=== PATIENT | male | born 2000 | race Caucasian/White ===

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

== ENCOUNTER 2022-03-05 19:23 | Observation (INO) | payer OTHER ==
[2022-03-05] MEDS ORDERED: Sodium Chloride 0.9% 10 ML Syringe FLUSH PRN (19:25)
[2022-03-05] MEDS ORDERED: Sodium Chloride 0.9% 1,000 ML IV ONE ×2 (19:26→20:49)
[2022-03-05 20:03] LABS: ANION GAP 11.1 mmol/L (5-15); CHLORIDE,CL 100 mmol/L (98-107); SODIUM,NA 135 mmol/L (136-145)
[2022-03-05 20:04] LABS: ESTIMATED GFR 117 mL/min (>=60)
[2022-03-05] MEDS ORDERED: cefTRIAXone 2 GM Vial IVPUSH ONE (20:17)
[2022-03-05] MEDS ORDERED: Azithromycin 500 MG in Sodium Chloride 0.9% 250 ML IV ONE (20:18)
[2022-03-05] MEDS ORDERED: Ketorolac 30 MG/ML SDV IVPUSH ONE (20:38)
[2022-03-05] MEDS ORDERED: Sodium Chloride 0.9% 1,000 ML ONE (20:47)
[2022-03-05 20:56] LABS: RESPIRATORY SYNCYTIAL VIR NAA NEGATIVE (NEGATIVE)
[2022-03-05 20:58] LABS: CORONAVIRUS COVID-19 NAA NEGATIVE (NEGATIVE)
[2022-03-05] MEDS ORDERED: Iopamidol 755 Mg/ML 75 ML Bottle IVPUSH ONE (21:32)
[2022-03-05] MEDS ORDERED: Sodium Chloride 0.9% 100 ML IV SCH (21:45)
[2022-03-05] MEDS ORDERED: Ondansetron 4 MG/2 ML SDV IVPUSH ONE (22:01)
[2022-03-05] MEDS ORDERED: Ibuprofen 400 MG Tab PO ONE (22:02)
[2022-03-05] MEDS ORDERED: Albuterol/Ipratropium 3.0-0.5 MG/3 ML Neb Soln NEB ONE (22:08)
[2022-03-05] MEDS ORDERED: Ondansetron 4 MG/2 ML SDV IVPUSH PRN (22:58)
[2022-03-05] MEDS: Sodium Chloride 0.9% 1,000 ML IV SCH (23:00)
[2022-03-05] MEDS ORDERED: Albuterol/Ipratropium 3.0-0.5 MG/3 ML Neb Soln NEB PRN (23:01)
[2022-03-05] MEDS ORDERED: Lidocaine 2% 100 MG/5 ML Syringe IVPUSH PRN (23:27)
[2022-03-05] MEDS ORDERED: Atropine 0.1 MG/ML 10 ML Syringe IVPUSH PRN (23:27)
[2022-03-05] MEDS ORDERED: EPINEPHrine 1:10,000 1 MG/10 ML Syringe IVPUSH PRN (23:27)
[2022-03-05] MEDS ORDERED: Nitroglycerin 0.4 MG Tab.SL SL PRN (23:27)
[2022-03-05] MEDS: Acetaminophen 325 MG Tab PO PRN (23:30)
[2022-03-06] MEDS ORDERED: Ibuprofen 600 MG Tab PO PRN (04:00)
[2022-03-06 07:40] LABS: ANION GAP 8.3 mmol/L (5-15)
[2022-03-06] MEDS: Acetaminophen 325 MG Tab PO PRN ×2 (08:18→15:54)
[2022-03-06] MEDS: Sodium Chloride 0.9% 1,000 ML IV SCH ×2 (09:41→20:16)
[2022-03-06] MEDS: guaiFENesin 600 MG Tab.ER PO SCH ×2 (10:19→20:15)
[2022-03-06] MEDS ORDERED: cefTRIAXone 1 GM Vial IVPUSH SCH (21:00)
[2022-03-06] MEDS ORDERED: Azithromycin 500 MG in Sodium Chloride 0.9% 250 ML IV SCH (21:00)
[2022-03-07 06:51] VITALS: BP 130/74; PULSE 86
[2022-03-07] MEDS: Sodium Chloride 0.9% 1,000 ML IV SCH (07:25)
[2022-03-07 07:51] LABS: ANION GAP 10.3 mmol/L (5-15)
[2022-03-07] MEDS: guaiFENesin 600 MG Tab.ER PO SCH (08:23)
[2022-03-07] MEDS ORDERED: Cefdinir 300 MG Cap PO SCH (21:00)
[2022-03-07] MEDS ORDERED: Azithromycin 250 MG Tab PO ONE (21:00)
== END 2022-03-07 10:30 | disposition home or self-care (01) ==
LOC: KA.ED 19:23 → KA.MS 22:25
PROVIDERS: ADMIT Physician Assistant Medical; ATTEND Physician Assistant Medical
DX: J18.1 Lobar pneumonia, unspecified organism (principal); D72.829 Elevated white blood cell count, unspecified; R00.0 Tachycardia, unspecified; Z79.899 Other long term (current) drug therapy; Z91.040 Latex allergy status; Z98.890 Other specified postprocedural states; Z87.891 Personal history of nicotine dependence; Z20.822 Contact with and (suspected) exposure to COVID-19
CPT/HCPCS: 0241U; 36415; 71045; 71275; 80048; 80053; 83605; 85025; 85379; 86140; 87040; 93005; 93010; 94640; 96361; 96365; 96366; 96375; 96376; 99284; 99285-25; A9270-GY; G0378; J0456; J0696; J1885; J2405; J7030; J7050; J7620-GY; Q9967